=== PATIENT | female | born 1975 | race Caucasian/White ===

== ENCOUNTER 2017-06-14 12:17 | Emergency (ER) | payer OTHER, BC ==
[~2017-06-14] VITALS: Ht 167.6 cm; Wt 159.0 kg
[~2017-06-14 12:17] MED LIST: ALBU17I INH; DICL50 PO; LOSA50TA PO; PHEN37.5 PO; TOPA100T8 PO; TOPI50TA4 PO
[2017-06-14 12:19] VITALS: BP 191/91; PULSE 109; RESP 17; TEMP 98.1; O2SAT 98
[2017-06-14 13:43] VITALS: BP 131/74; PULSE 68; PULSE 90; RESP 18; O2SAT 98; O2SAT 99
[2017-06-14] MEDS ORDERED: RESP: ALBUTEROL 2.5 MG/IPRATROPIUM 0.5 MG NEB (SCH) NEB ONE (14:00)
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
[2017-06-14] MEDS ORDERED: ROBA500T PO (15:04)
[2017-06-14] MEDS ORDERED: IBUP800T23 PO (15:04)
== END 2017-06-14 17:28 | disposition home or self-care (01) ==
LOC: NEPD 12:17
DX: S09.93XA Unspecified injury of face, initial encounter (principal); J32.0 Chronic maxillary sinusitis; J45.909 Unspecified asthma, uncomplicated; E11.9 Type 2 diabetes mellitus without complications; K21.9 Gastro-esophageal reflux disease without esophagitis; V43.52XA Car driver injured in collision with other type car in traffic accident, initial encounter; Z79.899 Other long term (current) drug therapy; Z88.0 Allergy status to penicillin; Z88.8 Allergy status to other drugs, medicaments and biological substances
CPT/HCPCS: 70450; 70486; 72125; 94664; 99285